=== PATIENT | male | born 1940 | race Caucasian/White ===

== ENCOUNTER 2017-03-17 09:19 | Outpatient (CLI) ==
--- NOTE | 2017-03-17 10:49 | DI ---
EXAM: Radiographs, pelvis and bilateral hip HISTORY: Bilateral hip pain. COMPARISON: None available. TECHNIQUE: Three views. FINDINGS: Bone mineralization is normal. There is no fracture or dislocation. The joint spaces are maintained although mild marginal osteophyte formation seen in both hips. No focal soft tissue abno rmality is seen. Atherosclerotic calcifications present. IMPRESSION: Mild osteoarthritis of the hips.
--- NOTE | 2017-03-17 10:51 | DI ---
EXAM: Radiographs, left knee HISTORY: Left knee pain. COMPARISON: 04/28/2012. TECHNIQUE: Three views. FINDINGS: Bone mineralization is normal. There is no fracture or dislocation. Moderate to severe m edial compartment joint space narrowing noted. Tricompartmental marginal osteophyte formation is gen erally mild. No erosive changes are seen. No focal soft tissue abnormality is seen. Since the prior study, there has been no significant interval change. IMPRESSION: Stable osteoarthritis, moderate to severe in the medial compartment.
== END 2017-03-17 09:20 | disposition home or self-care (01) ==
LOC: RAD 09:19
PROVIDERS: ATTEND Family Medicine
DX: M25.552 Pain in left hip (principal); M25.551 Pain in right hip; M25.562 Pain in left knee

== ENCOUNTER 2017-04-17 11:14 | Emergency (ER) ==
[2017-04-17 11:25] VITALS: BP 161/88; TEMP 99.5; BMI 40.7
[2017-04-17 11:55] LABS: BASOPHILS % (AUTO) 0.2 % (0.0-3.0); HEMATOCRIT 41.1 % (42.0-52.0); HEMOGLOBIN 14.8 g/dl (14.0-18.0); IMMATURE GRANULOCYTE % (AUTO) 0.4 % (0.0-5.0); LYMPHOCYTES # (AUTO) 1.2 K/uL (0.60-3.4); LYMPHOCYTES % (AUTO) 7.2 (10.0-50.0); MEAN CORPUSCULAR HEMOGLOBIN 31.5 pg (27.0-31.0); MEAN CORPUSCULAR VOLUME 87.4 fl (80.0-94.0); MONOCYTES # (AUTO) 1.5 K/uL (0.4-2.0); MONOCYTES % (AUTO) 9.2 (0-10); NEUTROPHILS # (AUTO) 13.5 K/ul (2.0-6.9); PLATELET COUNT 160 10^3/uL (140-440); WHITE BLOOD COUNT 16.27 K/ul (4.2-10.2)
[2017-04-17 12:01] LABS: BILIRUBIN,URINE Negative (NEGATIVE); KETONES,URINE Negative (NEGATIVE); LEUKOCYTE ESTERASE ,URINE 2+ (NEGATIVE); NITRITE,URINE Positive (NEGATIVE); PROTEIN,URINE 2+ (NEGATIVE); URINE, BLOOD 1+ (NEGATIVE)
[2017-04-17 12:04] LABS: ADD URINE MICROSCOPIC YES
[2017-04-17 12:05] LABS: BACTERIA,URINE 4+ (NOT PRESENT)
[2017-04-17 12:13] LABS: ALBUMIN 3.4 g/dL (3.4-5.0); ALBUMIN/GLOBULIN RATIO 1.06; ANION GAP 13.8; BILIRUBIN,TOTAL 1.53 mg/dL (0.00-1.20); BUN/CREATININE RATIO 17.28; CALCIUM 9.4 mg/dL (8.2-10.2); CREATININE 0.81 mg/dL (0.60-1.10); POTASSIUM 3.8 mmol/L (3.5-5.1); TOTAL PROTEIN 6.6 g/dL (5.8-8.1)
--- NOTE | 2017-04-17 12:17 | CT ---
EXAM: CT of the abdomen pelvis without contrast History: Abdominal pain. Technique: Multiplanar CT images through the abdomen pelvis were obtained without the administration of IV contrast Findings: Coronary calcifications and valvular calcifications of the heart. Lung bases are free of consolidation. No acute osseous abnormalities. Severe degenerative disc disease at L3-L4. The gallbladder is contracted. Atherosclerotic vascular calcifications. Enlarged fatty liver. Sple en is unremarkable. No focal liver or splenic lesions. No peripancreatic inflammation. Adrenal gla nds are unremarkable. No renal stones and no hydronephrosis. Bilateral perinephric stranding. No h ydronephrosis. No ureteral calculi. No bowel obstruction. No free air. Tiny fat containing umbilical hernia. The appendix is normal. Diffuse bladder wall thickening with adjacent inflammation. The prostate is enlarged and abutting th e base of the bladder. Impression: 1. Bilateral perinephric stranding. Correlate with urinalysis for urinary tract infection. 2. Diffuse bladder wall thickening with adjacent inflammation could represent cystitis or related to bladder outlet obstruction from the enlarged prostate. 3. Enlarged fatty liver.
--- NOTE | 2017-04-17 12:37 | ED.PDOC ---
General ED Provider: Dr. VENESSA TORRES Chief Complaint: Urinary Problem Stated Complaint: dysuria Time Seen by Physician: 11:18 (dysuria and problem with urine streaming ) Mode of Arrival: Walk-In Information Source: Patient Exam Limitations: No limitations Primary Care Provider: YAEL GE Nursing and Triage Documentation Reviewed and Agree: Yes Complaint Exam - Complaint/Exam Patient Complains of: Reports: Dysuria Onset/Duration: today Symptoms Are: Resolved Timing: Intermittent Episodes of Voiding Over Last 12 Hours: 3 Initial Severity: Mild Current Severity: None Location of Pain: Reports: Suprapubic Character: Reports: Dull Aggravating: Reports: Voiding Alleviating: Reports: None Associated Signs and Symptoms: Reports: Dysuria. Denies: Diaphoresis, Back pain , Fever, Hematuria, Constipation, Blood in stool, Rectal pain, Appetite change, Nausea, Vomiting, Penile swelling, Penile discharge, Decreased urine output, Increased urine frequency, Increased thirst, Decreased activity, Lethargy, Scrotal pain, Scrotal swelling, Abdominal Pain Testicular Torsion Risk Factors: Reports: None Surgical Obstruction Risk Factors: Reports: None Related Surgical History: Reports: None Abdominal Findings: Present: None Differential Diagnoses: Pyelonephritis, UTI Review of Systems - Review Of Systems Constitutional: Reports: No symptoms Eyes: Reports: No symptoms Ears, Nose, Mouth, Throat: Reports: No symptoms Respiratory: Reports: No symptoms Cardiac: Reports: No symptoms GI: Reports: No symptoms : Reports: Dysuria Musculoskeletal: Reports: No symptoms Skin: Reports: No symptoms Neurological: Reports: No symptoms Endocrine: Reports: No symptoms Hematologic/Lymphatic: Reports: No symptoms All Other Systems: Reviewed and Negative Past Medical History - Past Medical History Previously Healthy: Yes Endocrine: Reports: DM 2, Dyslipidemia Cardiovascular: Reports: None Respiratory: Reports: None Hematological: Reports: None Gastrointestinal: Reports: None Genitourinary: Reports: None Neuro/Psych: Reports: None Musculoskeletal: Reports: None Cancer: Reports: None - Surgical History General Surgical History: Reports: None - Family History Family History: Reports: None - Social History Smoking Status: Former smoker Hx Substance Use: No - Immunizations Tetanus Shot up to Date: Yes Physical Exam - Physical Exam Appearance: Well-appearing, No pain distress, Well-nourished Eyes: JOVANA, EOMI, Conjunctiva clear ENT: Ears normal, Nose normal, Oropharynx normal Respiratory: Airway patent, Breath sounds clear, Breath sounds equal, Respirations nonlabored Cardiovascular: RRR, Pulses normal, No rub, No murmur GI/: Soft, Nontender, No masses, Bowel sounds normal, No Organomegaly Musculoskeletal: Normal strength, ROM intact, No edema, No calf tenderness Skin: Warm, Dry, Normal color Neurological: Sensation intact, Motor intact, Reflexes intact, Cranial nerves intact, Alert, Oriented Psychiatric: Affect appropriate, Mood appropriate Interpretation - Radiology Interpretation Radiology Interpretation By: Radiologist Radiology Results: Positive (perinephritic stranding) Re-Evaluation - Re-Evaluation Time of Re-Evaluation: 12:40 (BLADDER SCAN POSTIVE FOR 30 ML) Vital Signs Stable: Yes Pain Level: 0 Appearance: NAD Lungs: Clear Skin: Warm and Dry Neuro: Alert and Oriented X3 CV: RRR Physician Notification - Case Discussed Physician Notified: maurice Time of Notification: 12:39 (if scan is less than 300 ML may go home with close follow up with pmd in AM) Critical Care Note - Critical Care Note Total Time (mins): 0 Course - Course Hematology/Chemistry: 04/17/17 11:45 04/17/17 11:45 Orders, Labs, Meds: Lab Review 04/17/17 04/17/17 04/17/17 11:33 11:45 11:45 WBC 16.27 H RBC 4.70 Hgb 14.8 Hct 41.1 L MCV 87.4 MCH 31.5 H MCHC 36.0 H RDW Coeff of [place] 12.2 Plt Count 160 Immature Gran % (Auto) 0.4 Neut % (Auto) 83.0 Lymph % (Auto) 7.2 L [place] % (Auto) 9.2 Eos % (Auto) 0.0 Baso % (Auto) 0.2 Immature Gran # (Auto) 0.1 Neut # 13.5 H Lymph # 1.2 [place] # 1.5 Eos # 0.0 Baso # 0.0 Sodium 135 L Potassium 3.8 Chloride 99 Carbon Dioxide 26 Anion Gap 13.8 BUN 14 Creatinine 0.81 Estimated GFR (MDRD) 93.00 BUN/Creatinine Ratio 17.28 Glucose 139 H Calcium 9.4 Total Bilirubin 1.53 H AST 22 ALT 20 Alkaline Phosphatase 56 Total Protein 6.6 Albumin 3.4 Globulin 3.2 Albumin/Globulin Ratio 1.06 Urine Color Yellow Urine Clarity Turbid Urine pH 6.[address] 1.020 Urine Protein 2+ Urine Glucose (UA) Negative Urine Ketones Negative Urine Blood 1+ Urine Nitrite Positive Urine Bilirubin Negative Urine Urobilinogen 1.0 Ur Leukocyte Esterase 2+ Urine Microscopic RBC 2-5 Urine Microscopic WBC 20-30 Ur Squamous Epith Cells Not present Urine Bacteria 4+ Orders Category Date Time Status Bladder Scan [ED BLADDER SCAN] .ONCE EMERGENCY 04/17/17 12:35 Ordered CBC W/ AUTO DIFF Stat LAB 04/17/17 11:35 Ordered COMPREHENSIVE METABOLIC PANEL Stat LAB 04/17/17 11:35 Ordered URINALYSIS C & S IF INDICATED Stat LAB 04/17/17 11:35 Uncollected URINE CULTURE Routine LAB 04/17/17 11:[address] ABD/PEL WO RENAL STONE PROT Stat RADS 04/17/17 11:35 Ordered Vital Signs: Temp Pulse Resp BP Pulse Ox 04/17/17 11:18 99.5 F 77 22 161/88 H 93 L Departure - Departure Time of Disposition: 12:41 Disposition: HOME SELF-CARE Discharge Problem: Urinary tract infectious disease, Urinary symptoms UTI (urinary tract infection) Qualifiers: Urinary tract infection type: site unspecified Instructions: Urinary Tract Infection in Men (ED), Urinary Traction Infection in Older Adults (ED) Condition: Good Pt referred to PMD for follow-up: Yes Additional Instructions: Please call your Family Physician as soon as possible to schedule a follow-up appointment. you have issues that point to a prostates problem. you must contact your MD JANY. if you can not urinate and feel pressure you must return JANY because if you ignore this issue you can have a kidney loss Allergies/Adverse Reactions: Allergies No Known Allergies Allergy (Unverified 04/17/17 11:25) Home Medications: Ambulatory Orders Aspirin/Calcium Carbonate/Mag [Aspirin Buffered 325 mg Tab] 325 mg PO DAILY 09/22 Atorvastatin Calcium [Lipitor] 20 mg PO DAILY 06/12/15 Diltiazem HCl [Diltiazem 24Hr Cd] 300 mg PO DAILY 06/12/15 Metformin HCl [Fortamet] 500 mg PO BID 06/12/15 [place]-3 Fatty Acids [Fish Oil] 500 mg PO QID 06/12/15
[2017-04-17] MEDS ORDERED: ROCEPHIN 1 GM in SODIUM CHLORIDE 50 ML IV STA (12:41)
[2017-04-17] MEDS ORDERED: CIPRO PO STA (12:42)
[2017-04-17] MEDS ORDERED: ROCEPHIN ONE (12:46)
== END 2017-04-17 13:46 | disposition home or self-care (01) ==
LOC: ED 11:14
DX: N39.0 Urinary tract infection, site not specified (principal)
CPT/HCPCS: 36415; 74176; 80053; 81001; 85025; 87086; 87186; 96365; 99283; 99284

== ENCOUNTER 2017-04-17 14:45 | Outpatient (CLI) ==
[2017-04-17 15:11] VITALS: BMI 41.5
== END 2017-04-17 14:46 | disposition left against medical advice (07) ==
LOC: AMBL 14:45
PROVIDERS: ATTEND Internal Medicine
DX: S09.90XA Unspecified injury of head, initial encounter (principal); S00.81XA Abrasion of other part of head, initial encounter; R42 Dizziness and giddiness; W19.XXXA Unspecified fall, initial encounter

== ENCOUNTER 2017-04-17 15:04 | Emergency (ER) ==
[2017-04-17 15:11] VITALS: BP 145/68; TEMP 102; BMI 41.5
--- NOTE | 2017-04-17 16:14 | CT ---
EXAM: CT BRAIN HISTORY: Head injury TECHNIQUE: CT brain without intravenous contrast. 5-mm axial sections with Reformations. COMPARISON: None FINDINGS: There is generalized atrophy. There is moderate periventricular and deep white matter low attenuation which although nonspecific is suggestive of chronic microvascular ischemic change. Brain otherwise is unremarkable without distinct evidence of hemorrhage or large vessel distribution recent ischemic infarction. There is no suggestion of acute hydrocephalus or subdural fluid collecti on. No mass or mass effect. No skull fracture is identified. Mastoid processes are aerated. There is a tiny amount of fluid wit hin the left maxillary sinus. Deformity of the nasal spines especially at the base of the left spine suggesting minimally displaced fractures. Age indeterminate, correlate clinically. IMPRESSION: 1. No acute intracranial process or injury identified. No skull fracture. 2. Cannot exclude acute nasal spine fracture. Correlate clinically.
--- NOTE | 2017-04-17 16:20 | CT ---
EXAM: CT cervical spine. HISTORY: Injury, pain . TECHNIQUE: CT cervical spine without contrast. Detailed axial sections. Coronal and sagittal re-fo rmations. COMPARISON: None FINDINGS: No acute fracture is identified. Normal vertebral body height and alignment. Facet joints are cover ed. Lateral masses of C1 and C2 are normally aligned and the odontoid process is intact. 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 Degenerative disc disease at C5/C6 least mild central canal stenosis. No paraspinal hematoma. Incidental note of atherosclerotic disease. IMPRESSION: No acute fracture or subluxation.
--- NOTE | 2017-04-17 16:39 | ED.PDOC ---
General ED Provider: Dr. VENESSA TORRES Chief Complaint: Head Injury Stated Complaint: head injury Time Seen by Physician: 15:10 Mode of Arrival: Wheelchair Information Source: Patient Exam Limitations: No limitations Primary Care Provider: YAEL GE Nursing and Triage Documentation Reviewed and Agree: Yes (no loc) Trauma/Injury Complaint Exam - Head Injury Complaint/Exam Location of Pain: Reports: Forehead Mechanism of Injury: Reports: Trauma Onset/Duration: 1 hra go Symptoms Are: Still present Initial Severity: Mild Current Severity: Mild Character: Reports: Dull Aggravating: Reports: None Alleviating: Reports: None Associated Signs and Symptoms: Denies: Confusion, Memory loss, Seizure, Epistaxis, Dental malocclusion, Neck pain, Nausea, Vomiting Loss of Consciousness: None SDH Risk Factors: Present: Male, Elderly Cervical Spine Injury Risk Factors: Present: None Related Surgical History: Reports: None Glascow Coma Scale (see protocol): 15 Focal Weakness: Present: None Focal Sensory Loss: Present: None Gait: Normal Gag Reflex Present: Yes Finger to Nose: Normal Differential Diagnoses: Cervical Fracture, Intracranial Bleed, Sprain, Strain Review of Systems - Review Of Systems Constitutional: Reports: No symptoms Eyes: Reports: No symptoms Ears, Nose, Mouth, Throat: Reports: No symptoms Respiratory: Reports: No symptoms Cardiac: Reports: No symptoms GI: Reports: No symptoms : Reports: No symptoms Musculoskeletal: Reports: Neck pain Skin: Reports: No symptoms Neurological: Reports: Headache Endocrine: Reports: No symptoms Hematologic/Lymphatic: Reports: No symptoms All Other Systems: Reviewed and Negative Past Medical History - Past Medical History Previously Healthy: Yes Endocrine: Reports: DM 2, Dyslipidemia Cardiovascular: Reports: None Respiratory: Reports: None Hematological: Reports: None Gastrointestinal: Reports: None Genitourinary: Reports: None Neuro/Psych: Reports: None Musculoskeletal: Reports: None Cancer: Reports: None - Surgical History General Surgical History: Reports: None - Family History Family History: Reports: None - Social History Smoking Status: Former smoker Hx Substance Use: No Physical Exam - Physical Exam Appearance: Well-appearing, No pain distress, Well-nourished Eyes: JOVANA, EOMI, Conjunctiva clear ENT: Ears normal, Nose normal, Oropharynx normal Respiratory: Airway patent, Breath sounds clear, Breath sounds equal, Respirations nonlabored Cardiovascular: RRR, Pulses normal, No rub, No murmur GI/: Soft, Nontender, No masses, Bowel sounds normal, No Organomegaly Musculoskeletal: Normal strength, ROM intact, No edema, No calf tenderness Skin: Warm, Dry, Normal color Neurological: Sensation intact, Motor intact, Reflexes intact, Cranial nerves intact, Alert, Oriented Psychiatric: Affect appropriate, Mood appropriate Interpretation - Radiology Interpretation Radiology Interpretation By: Radiologist Radiology Results: No acute changes Critical Care Note - Critical Care Note Total Time (mins): 0 Course - Course Orders, Labs, Meds: Orders Category Date Time Status CT CERVICAL SPINE W/O CONTRAST Stat RADS 04/17/17 15:[address] HEAD W/O CONTRAST Stat RADS 04/17/17 15:21 Completed Vital Signs: Temp Pulse Resp BP Pulse Ox 04/17/17 15:05 102 F H 75 16 145/68 H 9 L Departure - Departure Time of Disposition: 16:38 Disposition: HOME SELF-CARE Discharge Problem: Injury of head Instructions: Head Injury (ED), Cervical Sprain (ED) Condition: Good Pt referred to PMD for follow-up: Yes Additional Instructions: Please call your Family Physician as soon as possible to schedule a follow-up appointment. Allergies/Adverse Reactions: Allergies No Known Allergies Allergy (Verified 04/17/17 15:20) Home Medications: Ambulatory Orders Aspirin/Calcium Carbonate/Mag [Aspirin Buffered 325 mg Tab] 325 mg PO DAILY 09/22 Atorvastatin Calcium [Lipitor] 20 mg PO DAILY 06/12/15 Diltiazem HCl [Diltiazem 24Hr Cd] 300 mg PO DAILY 06/12/15 Metformin HCl [Fortamet] 500 mg PO BID 06/12/15 [place]-3 Fatty Acids [Fish Oil] 500 mg PO QID 06/12/15
== END 2017-04-17 16:42 | disposition home or self-care (01) ==
LOC: ED 15:04
DX: S09.90XA Unspecified injury of head, initial encounter (principal); M54.2 Cervicalgia
CPT/HCPCS: 99283